=== PATIENT | female | born 1940 | race Two or more races ===

== ENCOUNTER 2021-03-08 14:22 | Emergency (ER) | payer MEDICARE, MEDICAID ==
[~2021-03-08] VITALS: Ht 162.6 cm; Wt 81.0 kg
[2021-03-08 14:24] VITALS: BP 123/74
== END 2021-03-08 15:30 | disposition left against medical advice (07) ==
LOC: ER 14:22
DX: R55 Syncope and collapse (principal); I10 Essential (primary) hypertension
CPT/HCPCS: 99283